=== PATIENT | female | born 1950 | race Caucasian/White ===

== ENCOUNTER 2024-02-17 06:10 | Day surgery (SDC) | payer MEDICARE, OTHER ==
[2024-02-17] MEDS: KETOROLAC 0.45% OPHTH DROPS ONE (06:40)
[2024-02-17] MEDS: PHENYLEPHRINE 2.5% OPHTH 2 ML DROPS ONE (06:40)
[2024-02-17] MEDS: PROPARACAINE 0.5% OPHTH DROPS 15 ML ONE (06:40)
[2024-02-17] MEDS: LACTATED RINGERS 1,000 ML IV ONE (06:54)
[2024-02-17] MEDS: CYCLOPENTOLATE 1% OPHTH DROPS 2 ML RIGHTEYE ONE (06:57)
[2024-02-17] MEDS ORDERED: EPINEPHrine 1 MG/ML AMP ONE (07:01)
[2024-02-17] MEDS ORDERED: TIMOLOL 0.5% OPHTH DROPS ONE (07:01)
[2024-02-17] MEDS ORDERED: BRIMONIDINE 0.2% OPHTH DROPS 5 ML ONE (07:01)
[2024-02-17] MEDS ORDERED: TRIAMCIN/MOXIFLOX OPHTHALMIC 0.6 ML VIAL IO ONE (07:01)
[2024-02-17] MEDS ORDERED: BSS/LIDOCAINE/EPINEPHRINE 1 ML VIAL ONE (07:02)
--- NOTE | 2024-02-17 07:08 | ANESTHESIA ---
Pre-Anesthesia VS, & Labs - Diagnosis right senile combined cataract - Procedure right cataract extraction with IOL Vital Signs: Temp Pulse Resp BP Pulse Ox O2 Flow Rate 36.5 C 54 L 12 141/59 H 99 02/17/24 06:30 02/17/24 06:30 02/17/24 06:30 02/17/24 06:30 02/17/24 06:30 Height: 4 ft 11 in Weight (kg): 60.5 kg Body Mass Index: 26.9 BMI Classification: Overweight - NPO >8 hours - Is Patient ?: No - Lab Results Current Lab Results: Laboratory Tests 02/17/24 06:51: POC Whole Bld Glucose 157 H Home Medications and Allergies Allergies/Adverse Reactions: Allergies Allergy/AdvReac Type Severity Reaction Status Date / Time No Known Drug Allergies Allergy Verified 02/17/24 07:04 Anes History & Medical History - Anesthetic History Anesthesia Complications: reports: No previous complications - Medical History Cardiovascular: reports: None Pulmonary: reports: None Gastrointestinal: reports: None Urinary: reports: None Musculoskeletal: reports: None Endocrine/Autoimmune: reports: Type 2 diabetes Skin: reports: Other Smoking Status: Never smoker - Surgical History General: reports: Colonoscopy Dermatologic: reports: Skin cancer surgery Exam General: Alert, Oriented x3 Dental: WNL Mouth Opening: Greater than 4 Fingerbreadths Neck Mobility: Normal Mallampati classification: I Thyromental Distance: greater than 6 cm Respiratory: Lungs clear Cardiovascular: Regular rate Plan Anesthesia Type: General Consent for Procedure(s) Verified and Reviewed: Yes Code Status: Attempt Resuscitation ASA classification: 2-Mild systemic disease Is this case an emergency?: No
[2024-02-17] MEDS: TIMOLOL 0.5% OPHTH DROPS OPTH ONE (07:13)
[2024-02-17] MEDS: BRIMONIDINE 0.2% OPHTH DROPS 5 ML OPTH ONE (07:13)
[2024-02-17] MEDS: EPINEPHrine 1 MG/ML AMP IR ONE (07:13)
[2024-02-17] MEDS: BSS/LIDOCAINE/EPINEPHRINE 1 ML SYRINGE IO ONE (07:14)
[2024-02-17] MEDS ORDERED: fentaNYL 100 MCG/2 ML VIAL ONE (07:24)
[2024-02-17] MEDS ORDERED: MIDAZOLAM 2 MG/2 ML VIAL ONE (07:24)
[2024-02-17] MEDS: PROPARACAINE 0.5% OPHTH DROPS 15 ML EACHEYE ONE (07:27)
[2024-02-17] MEDS: VANCOMYCIN OPHTH (TOPICAL) 10 MG/ML SYRINGE TOP ONE (07:27)
[2024-02-17] MEDS: TRIAMCIN/MOXIFLOX OPHTHALMIC 0.6 ML VIAL IO ONE (07:27)
[2024-02-17] MEDS: LACTATED RINGERS 600 ML IV ONE (07:44)
--- NOTE | 2024-02-17 07:51 | OPERATIVE REPORT ---
Operative Report - Other Other Information/Narrative: Date of Surgery: 02/17/24 Preop Dx: Visually significant cataract right eye. This was the first cataract surgery. Postop Dx: Same Procedure: Phacoemulsification with posterior chamber intraocular lens implant right eye Surgeon: Dr. Brett Ramon Anesthesia: Monitored anesthesia care Complications: None Operative Indications: This is a 73-year-old F with progressive vision loss in the right eye due to 2-3+ nuclear sclerotic and 2-3+ cortical cataract. Best corrected visual acuity was 20/20 with glare to 20/150 vision in the right eye. Indications for surgery were: - Overall decrease in vision - Difficulty seeing words on a computer screen - Difficulty reading - Difficulty seeing words, closed captions, or game scores on TV - Difficulty driving in low light or at night - Difficulty driving at night because of headlights from other vehicles - Difficulty with glare or bright lights in any situation - Decreased acuity with firearms The patient was consented at length concerning the risks and benefits of cataract surgery after which the patient expressed a desire to proceed with [facility]. Operative Procedure: The patient was taken into OR#3 and placed under monitored anesthesia care. A surgical time-out was conducted confirming correct patient, correct procedure, and correct surgical site. The patient was given topical anesthesia and then prepped and draped in the usual sterile fashion. The eye was entered at the 6 and 3 oclock positions. Intracameral Shugarcaine was injected into the anterior chamber followed by a dispersive viscoelastic. A continuous-tear curvilinear capsulorhexis was performed. The nucleus was hydrodissected and phacoemulsified. The cortex was evacuated using automated infusion and aspiration. A cohesive viscoelastic was injected into the capsular bag and a 22.5 diopter intraocular lens was inserted into the bag. Infusion and aspiration were used to evacuate the viscoelastic materials from the eye. The wounds were hydrated and the eye inflated to physiologic pressure using balanced salt solution. Approximately 0.25ml of a mixture of triamcinolone and moxifloxacin was injected trans-sclerally into the vitreous in the inferotemporal quadrant using a 30 gauge cannula. An additional 0.25ml of a mixture of triamcinolone and moxifloxacin was injected subconjunctivally in the superior quadrant for infection and inflammation prophylaxis. Wound integrity was checked with Weck-Juli sponges. The patient was taken from the operating room in good condition and given post-op instructions.
[2024-02-17 08:00] VITALS: BP 112/52; O2SAT 98
--- NOTE | 2024-02-17 08:17 | ANESTHESIA POST OP EVALUATION ---
Anesthesia Post Eval - Post Anesthesia Eval Vitals: Last Vital Signs Temp 36.7 C 02/17/24 07:58 Pulse 67 02/17/24 07:58 Resp 18 02/17/24 07:58 BP 112/52 L 02/17/24 07:58 Pulse Ox 98 02/17/24 07:58 O2 Flow Rate CV Function Including HR & BP: Stable Pain Control: Satisfactory Nausea & Vomiting: Negative Mental Status: Baseline Respiratory Status: Airway Patent Hydration Status: Satisfactory Anesthesia Complications: None
== END 2024-02-17 06:11 | disposition home or self-care (01) ==
LOC: SDS 06:10
PROVIDERS: ATTEND Ophthalmology
DX: E11.36 Type 2 diabetes mellitus with diabetic cataract (principal); H25.811 Combined forms of age-related cataract, right eye; I10 Essential (primary) hypertension
CPT/HCPCS: 66984; A9270; J3490; J7120

== ENCOUNTER 2024-07-27 08:25 | Day surgery (SDC) | payer MEDICARE, OTHER ==
[~2024-07-27 08:25] MED LIST: CYCLOPENTOLATE 1% OPHTH DROPS 2 ML ONE; KETOROLAC TROMETHAMINE 0.5% OPHTH DROPS 5 ML ONE; PHENYLEPHRINE 2.5% OPHTH 2 ML DROPS ONE; PROPARACAINE 0.5% OPHTH DROPS 15 ML ONE
[2024-07-27] MEDS: LACTATED RINGERS 1,000 ML IV ONE ×2 (09:10→11:09)
[2024-07-27] MEDS: PHENYLEPHRINE 2.5% OPHTH 2 ML DROPS ONE (09:11)
[2024-07-27] MEDS: CYCLOPENTOLATE 1% OPHTH DROPS 2 ML ONE (09:11)
[2024-07-27] MEDS: KETOROLAC TROMETHAMINE 0.5% OPHTH DROPS 5 ML ONE (09:11)
[2024-07-27] MEDS: PROPARACAINE 0.5% OPHTH DROPS 15 ML ONE (09:11)
[2024-07-27] MEDS ORDERED: MIDAZOLAM 2 MG/2 ML VIAL ONE (10:25)
[2024-07-27] MEDS ORDERED: EPINEPHrine 1 MG/ML AMP ONE (10:37)
[2024-07-27] MEDS ORDERED: BSS/LIDOCAINE/EPINEPHRINE 1 ML VIAL ONE (10:37)
[2024-07-27] MEDS ORDERED: TRIAMCIN/MOXIFLOX OPHTHALMIC 0.6 ML VIAL IO ONE (10:37)
[2024-07-27] MEDS ORDERED: TIMOLOL 0.5% OPHTH DROPS ONE (10:37)
[2024-07-27] MEDS ORDERED: BRIMONIDINE 0.2% OPHTH DROPS 5 ML ONE (10:37)
[2024-07-27] MEDS: BRIMONIDINE 0.2% OPHTH DROPS 5 ML OPTH ONE (10:46)
[2024-07-27] MEDS: EPINEPHrine 1 MG/ML AMP IR ONE (10:46)
[2024-07-27] MEDS: VANCOMYCIN OPHTH (TOPICAL) 10 MG/ML SYRINGE TOP ONE (10:47)
[2024-07-27] MEDS: PROPARACAINE 0.5% OPHTH DROPS 15 ML EACHEYE ONE (10:47)
[2024-07-27] MEDS: TIMOLOL 0.5% OPHTH DROPS OPTH ONE (10:47)
[2024-07-27] MEDS: TRIAMCIN/MOXIFLOX OPHTHALMIC 0.6 ML VIAL IO ONE (10:47)
[2024-07-27] MEDS: BSS/LIDOCAINE/EPINEPHRINE 1 ML SYRINGE IO ONE (10:47)
--- NOTE | 2024-07-27 10:50 | ANESTHESIA ---
Pre-Anesthesia VS, & Labs - Diagnosis L eye cataract - Procedure L extraction cataract wIOL Vital Signs: Temp Pulse Resp BP Pulse Ox O2 Flow Rate 36.7 C 57 L 21 157/62 H 97 07/27/24 09:14 07/27/24 09:14 07/27/24 09:14 07/27/24 09:14 07/27/24 09:14 Height: 4 ft 11 in Weight (kg): 58.4 kg Body Mass Index: 25.9 BMI Classification: Overweight - NPO >8 hours - Is Patient ?: No - Lab Results Current Lab Results: Laboratory Tests 07/27/24 09:30: POC Whole Bld Glucose 135 H Lab results reviewed: Yes Home Medications and Allergies Home Medications: Ambulatory Orders Aspirin Chewable [St Ander Aspirin] 81 mg PO DAILY 07/26/24 Atorvastatin [Lipitor] 20 mg PO QPM 07/26/24 Dulaglutide [Trulicity] 1.5 mg SQ OAW 07/26/24 Lisinopril [Zestril] 10 mg PO DAILY 07/26/24 Multivitamin 1 each PO DAILY 07/26/24 metFORMIN [Glucophage] 500 mg PO BIDWM 07/26/24 Aspirin Chewable [St Ander Aspirin] 81 mg PO DAILY 07/26/24 Atorvastatin [Lipitor] 20 mg PO QPM 07/26/24 Dulaglutide [Trulicity] 1.5 mg SQ OAW 07/26/24 Lisinopril [Zestril] 10 mg PO DAILY 07/26/24 Multivitamin 1 each PO DAILY 07/26/24 metFORMIN [Glucophage] 500 mg PO BIDWM 07/26/24 Allergies/Adverse Reactions: Allergies Allergy/AdvReac Type Severity Reaction Status Date / Time No Known Drug Allergies Allergy Verified 07/27/24 09:33 Anes History & Medical History - Anesthetic History Anesthesia Complications: reports: No previous complications Family history of Anesthesia Complications: Denies Family history of Malignant Hyperthermia: Denies - Medical History Cardiovascular: reports: Hypertension, High cholesterol Pulmonary: reports: None Gastrointestinal: reports: None Urinary: reports: None Musculoskeletal: reports: None Endocrine/Autoimmune: reports: Type 2 diabetes Skin: reports: Other Smoking Status: Never smoker - Surgical History General: reports: Colonoscopy Eyes Ears Nose Throat (EENT): reports: Cataracts Dermatologic: reports: Skin cancer surgery Exam General: Alert, Oriented x3, Cooperative Dental: WNL Mouth Openin Fingerbreadth Neck Mobility: Normal Mallampati classification: II Thyromental Distance: 4-6 cm Respiratory: Lungs clear, Normal breath sounds, No respiratory distress Cardiovascular: Regular rate Neurological: Normal speech Mental/Cognitive Status: Alert/Oriented X3, Normal for patient Cognitive Status: Within normal limits Plan Anesthesia Type: MAC Consent for Procedure(s) Verified and Reviewed: Yes Code Status: Attempt Resuscitation ASA classification: 3-Severe systemic disease Is this case an emergency?: No
--- NOTE | 2024-07-27 11:16 | OPERATIVE REPORT ---
Operative Report - Other Other Information/Narrative: Date of Surgery: 07/27/24 Preop Dx: Visually significant cataract left eye. Cataract surgery was performed in the right eye on . Postop Dx: Same Procedure: Phacoemulsification with posterior chamber intraocular lens implant left eye Surgeon: Dr. Brett Ramon Anesthesia: Monitored anesthesia care Complications: None Operative Indications: This is a 73-year-old F with progressive vision loss in the left eye due to 2-3+ nuclear sclerotic and 2+ cortical cataract. Best corrected visual acuity was 20/25 with glare to 20/300 vision in the left eye. Indications for surgery were: - Overall decrease in vision - Difficulty seeing words on a computer screen - Difficulty reading - Difficulty seeing words, closed captions, or game scores on TV - Difficulty seeing street signs - Difficulty driving at night because of headlights from other vehicles - Difficulty with glare or bright lights in any situation The patient was consented at length concerning the risks and benefits of cataract surgery after which the patient expressed a desire to proceed with surgery. Operative Procedure: The patient was taken into OR#3 and placed under monitored anesthesia care. A surgical time-out was conducted confirming correct patient, correct procedure, and correct surgical site. The patient was given topical anesthesia and then prepped and draped in the usual sterile fashion. The eye was entered at the 6 and 3 oclock positions. Intracameral Shugarcaine was inj ected into the anterior chamber followed by a dispersive viscoelastic. A continuous-tear curvilinear capsulorhexis was performed. The nucleus was hydrodissected and phacoemulsified. The cortex was evacuated using automated infusion and aspiration. A cohesive viscoelastic was injected into the capsular bag and a 22.5 diopter intraocular lens was inserted into the bag. Infusion and aspiration were used to evacuate the viscoelastic materials from the eye. The wounds were hydrated and the eye inflated to physiologic pressure using balanced salt solution. Approximately 0.25ml of a mixture of triamcinolone and moxifloxacin was injected trans-sclerally into the vitreous in the inferotemporal quadrant using a 30 gauge cannula. An additional 0.25ml of a mixture of triamcinolone and moxifloxacin was injected subconjunctivally in the superior quadrant for infection and inflammation prophylaxis. Wound integrity was checked with Weck-Juli sponges. The patient was taken from the operating room in good condition and given post-op instructions.
--- NOTE | 2024-07-27 11:29 | ANESTHESIA POST OP EVALUATION ---
Anesthesia Post Eval - Post Anesthesia Eval Vitals: Last Vital Signs Temp 36.3 C L 07/27/24 11:08 Pulse 70 07/27/24 11:08 Resp 16 07/27/24 11:08 BP 136/63 H 07/27/24 11:08 Pulse Ox 99 07/27/24 11:08 O2 Flow Rate CV Function Including HR & BP: Stable Pain Control: Satisfactory Nausea & Vomiting: Negative Mental Status: Baseline Respiratory Status: Airway Patent Hydration Status: Satisfactory Anesthesia Complications: None
[2024-07-27 11:48] VITALS: BP 129/50; O2SAT 96
== END 2024-07-27 08:26 | disposition home or self-care (01) ==
LOC: SDS 08:25
PROVIDERS: ATTEND Ophthalmology
DX: E11.36 Type 2 diabetes mellitus with diabetic cataract (principal); H25.812 Combined forms of age-related cataract, left eye; I10 Essential (primary) hypertension; Z98.41 Cataract extraction status, right eye; Z79.84 Long term (current) use of oral hypoglycemic drugs
CPT/HCPCS: 66984; A9270; J3490; J7120